=== PATIENT | female | born 1970 | race Two or more races ===

== ENCOUNTER 2024-01-19 08:00 | Outpatient (CLI) | payer OTHER | END 2024-01-19 08:01 | disposition home or self-care (01) | LOC: EKG 08:00 → ADM 09:45 → CIR.AMB 01-26 07:00 → EDSTATUS 01-26 09:45 | PROVIDERS: ATTEND Surgery | DX: K64.4 Residual hemorrhoidal skin tags (principal); K64.3 Fourth degree hemorrhoids; L29.0 Pruritus ani; K64.2 Third degree hemorrhoids; I10 Essential (primary) hypertension ==

== ENCOUNTER 2024-03-05 05:25 | Day surgery (SDC) | payer OTHER ==
[~2024-03-05] VITALS: Ht 165.1 cm; Wt 63.5 kg
[2024-03-05] MEDS ORDERED: HEMOSTATIC MATRIX 1 KIT KIT TOP ONE (06:52)
[2024-03-05] MEDS ORDERED: POVIDONE-IODINE 118 ML BOTT TOP ONE (06:52)
[2024-03-05] MEDS ORDERED: DIBUCAINE 30 GM TUBE ONE (06:52)
[2024-03-05] MEDS ORDERED: BUPIVACAINE HCL/MPF 0.5% 30ML VIAL ONE (06:52)
[2024-03-05] MEDS ORDERED: LIDOCAINE HCL 1%/EPINEPHRINE 20ML VIAL IJ ONE (06:53)
[2024-03-05] MEDS ORDERED: CEFTRIAXONE SODIUM 2,000 MG VIAL ONE (06:58)
[2024-03-05] MEDS ORDERED: METRONIDAZOLE/SODIUM CHLORIDE 500 MG/100 ML PIGGYBACK IV ONE (06:59)
[2024-03-05] MEDS ORDERED: RECTICARE30 GM TOP (07:37)
[2024-03-05] MEDS ORDERED: PERCOCET 5-3251 EACH PO (07:37)
== END 2024-03-05 16:20 | disposition home or self-care (01) ==
LOC: CIR.AMB 05:25
PROVIDERS: ATTEND Surgery
DX: K64.3 Fourth degree hemorrhoids (principal); K64.4 Residual hemorrhoidal skin tags; L29.0 Pruritus ani; K64.2 Third degree hemorrhoids; Z91.013 Allergy to seafood; J45.909 Unspecified asthma, uncomplicated